=== PATIENT | male | born 1960 | race Asian ===

== ENCOUNTER 2020-11-29 23:17 | Inpatient (IN) | payer OTHER, SELFPAY ==
[~2020-11-29] VITALS: Ht 175.3 cm; Wt 79.4 kg
[2020-11-29 23:37] VITALS: BP_SYST 162
[2020-11-30] MEDS ORDERED: ONDANSETRON 4 MG ODT TAB PO ONE (00:15)
[2020-11-30] MEDS ORDERED: KETOROLAC TROMETHAMINE 60 MG/2 ML VIAL IM ONE (00:15)
[2020-11-30 00:50] LABS: BILIRUBIN,URINE NEGATIVE (NEGATIVE); BLOOD, URINE NEGATIVE (NEGATIVE); CLARITY/URINE CLEAR (CLEAR); COLOR,URINE YELLOW (YELLOW); GLUCOSE,URINE 2+ (NEGATIVE); KETONES,URINE 2+ (NEGATIVE); LEUKOCYTE ESTERASE ,URINE NEGATIVE (NEGATIVE); NITRITE, URINE NEGATIVE (NEGATIVE); PH,URINE 7.5 (5.0-8.0); PROTEIN URINE NEGATIVE (NEGATIVE); UROBILINOGEN,URINE 0.2 (0.2-1.0)
[2020-11-30 00:54] LABS: BASOPHILS # (AUTO) 0.1 K/uL (0.0-0.2); BASOPHILS % (AUTO) 0.8 % (0.0-2.0); HEMATOCRIT 45.1 % (36-54); HEMOGLOBIN 15.1 g/dL (14.0-18.0); LYMPHOCYTES # (AUTO) 0.8 K/uL (1.0-5.5); LYMPHOCYTES % (AUTO) 8.4 % (20.5-51.5); MEAN CORPUSCULAR HEMOGLOBIN 27 pg (27-31); MEAN CORPUSCULAR HGB CONC 34 % (32-36); MEAN CORPUSCULAR VOLUME 81 fL (79.0-98.0); MONOCYTES # (AUTO) 0.3 K/uL (0.0-1.0); MONOCYTES % (AUTO) 2.6 % (1.7-9.3); NEUTROPHILS # (AUTO) 8.6 K/uL (1.8-7.7); NEUTROPHILS % (AUTO) 88.2 % (40.0-70.0); PLATELET COUNT (AUTO) 202 K/uL (130-430); RED BLOOD CELL COUNT(AUTO) 5.55 MIL/uL (4.2-6.2); RED CELL DISTRIBUTION WIDTH 14.5 % (9.0-15.0); WHITE BLOOD COUNT (AUTO) 9.7 K/uL (4.8-10.8)
[2020-11-30 01:00] LABS: BACTERIA,URINE FEW /HPF (None Seen); RBC,URINE 0-3 /HPF (0-3); WBC,URINE 0-3 /HPF (0-3)
[2020-11-30 01:15] LABS: ALANINE AMINOTRANSFERASE 25 U/L (12-78); ALBUMIN 4.5 g/dL (3.4-4.8); ANION GAP 12 (5-15); ASPARTATE AMINOTRANSFERASE 13 U/L (10-37); CALCIUM 9.7 mg/dL (8.4-11.0); CHLORIDE 102 mmol/L (98-107); CREATININE 1.12 mg/dL (0.55-1.30); GLUCOSE 180 mg/dL (70-99); LIPASE 83 U/L (73-393); POTASSIUM 3.7 mmol/L (3.5-5.1); SODIUM SERUM 141 mmol/L (136-145); UREA NITROGEN, BLOOD 18 mg/dL (8-21)
[2020-11-30 01:16] LABS: GFR AFRICAN AMERICAN 87 mL/min (>90)
--- NOTE | 2020-11-30 01:38 | NUR ---
Patient to ER bed 3 to gown for evaluation. Side rails up.
--- NOTE | 2020-11-30 01:40 | NUR ---
Patient BIB by family from home. C/O RLQ abdominal pain x today. Patient reported, had RLQ abdominal pain ~ 4 hours ETA. A/O,X4, RLQ abdominal pain, pain rate 5/10.
--- NOTE | 2020-11-30 01:41 | NUR ---
ER Dr. Martinez at bedside examining patient.
[2020-11-30] MEDS ORDERED: NACL 0.9% 1,000 ML IV ONE (02:00)
[2020-11-30] MEDS ORDERED: MORPHINE 4 MG INJ. 4 MG/ML VIAL IVP ONE (02:00)
[2020-11-30] MEDS ORDERED: PIPERACILLIN/TAZO 3.375 GM in NS 50 ML IV ONE (02:00)
[2020-11-30] MEDS ORDERED: hydrALAZINE HCL 20 MG/ML VIAL IVP PRN (02:00)
--- NOTE | 2020-11-30 02:19 | NUR ---
BS 148, Dr. Martinez notified.
[2020-11-30] MEDS ORDERED: AMLO2.5T2 PO (02:21)
[2020-11-30] MEDS ORDERED: AMLO-349 PO (02:21)
[2020-11-30] MEDS ORDERED: METF-518 PO (02:21)
--- NOTE | 2020-11-30 02:21 | NUR ---
Medication reconciliation completed with information provided by patient. Any prior medication reconciliation on file was reviewed and corrected.
[2020-11-30] MEDS ORDERED: PIPERACILLIN/TAZOBACTAM 3.375 GM/VIAL (ZOSYN) IV ONE (02:39)
--- NOTE | 2020-11-30 04:24 | NUR ---
Patient had abdominal pain, pain rate 7/10.
[2020-11-30] MEDS ORDERED: MORPHINE 4 MG INJ. 4 MG/ML VIAL ONE (04:29)
--- NOTE | 2020-11-30 04:30 | NUR ---
COVID-19 swabs collected and sent to lab.
[2020-11-30 05:22] LABS: BASOPHILS % (AUTO) 0.4 % (0.0-2.0); HEMATOCRIT 42.7 % (36-54); HEMOGLOBIN 14.3 g/dL (14.0-18.0); LYMPHOCYTES # (AUTO) 0.8 K/uL (1.0-5.5); LYMPHOCYTES % (AUTO) 7.7 % (20.5-51.5); MEAN CORPUSCULAR HEMOGLOBIN 27 pg (27-31); MEAN CORPUSCULAR HGB CONC 34 % (32-36); MEAN CORPUSCULAR VOLUME 81 fL (79.0-98.0); MONOCYTES # (AUTO) 0.6 K/uL (0.0-1.0); MONOCYTES % (AUTO) 5.2 % (1.7-9.3); NEUTROPHILS # (AUTO) 9.3 K/uL (1.8-7.7); NEUTROPHILS % (AUTO) 86.7 % (40.0-70.0); PLATELET COUNT (AUTO) 189 K/uL (130-430); RED CELL DISTRIBUTION WIDTH 14.4 % (9.0-15.0); WHITE BLOOD COUNT (AUTO) 10.7 K/uL (4.8-10.8)
--- NOTE | 2020-11-30 05:56 | NUR ---
Patient resting quietly, No acute distress noted. Vital signs within normal range.
[2020-11-30] MEDS ORDERED: NALOXONE HCL 0.4 MG/ML AMP (NARCAN) IVP PRN ×3 (07:00→17:30)
[2020-11-30] MEDS ORDERED: HYDROcodone/ACETAMIN 5-325 MG TAB (NORCO/ VICODIN) PO PRN ×2 (07:00→17:30)
[2020-11-30] MEDS ORDERED: ACETAMINOPHEN 325 MG TABLET PO PRN ×2 (07:00→17:30)
[2020-11-30] MEDS ORDERED: ONDANSETRON HCL 4 MG/2 ML VIAL IVP PRN (07:00)
[2020-11-30] MEDS ORDERED: DOCUSATE SODIUM 100 MG CAPSULE PO PRN (07:00)
--- NOTE | 2020-11-30 07:19 | NUR ---
Report given to VIRA Reyes and endorse care of patient.
--- NOTE | 2020-11-30 07:21 | NUR ---
report recieved from August RN
[2020-11-30] MEDS: NACL 0.9% 1,000 ML IV SCH ×2 (07:34→15:26)
--- NOTE | 2020-11-30 08:05 | NUR ---
Admission Note Received patient from ER with diagnosis of APPENDICITIS. Initial Plan of Care discussed-patient verbalized understanding. . Oriented to room, call light, pain management and safety.
--- NOTE | 2020-11-30 08:07 | NUR ---
CONSULTATION PAGED REASON FOR CONSULTATIONY:APPENDICITS WAS CONSULT CALED? PERSON WHO WAS NOTIFIED:ABBY CONSULTING PHYSICIAN:TRUDY ADAMS RESEARCH AND DEVELOPMENT MANAGER SPECIALTY:SURGEON RESEARCH AND DEVELOPMENT MANAGER PHONE NUMBER:[phone] REQUESTING PHYSICIAN:AYSE HEAD
--- NOTE | 2020-11-30 08:30 | NUR ---
ADMISSION NOTE Received patient from ER via gurney. Patient admitted with diagnosis of appendicitis. Patient is awake, alert, oriented 4X. Patient oriented to hospital room, call light, toileting, pain management and safety-teach back done. Patient informed that Darshana will be his nurse and that their room number is [id number]. Personal belongings checked and Belongings List documented. Call light within reach.
[2020-11-30 08:53] VITALS: BP_SYST 134
[2020-11-30 08:58] LABS: FREE T4 (FREE THYROXINE) 1.1 ng/dl (0.8-1.5); PHOSPHORUS 4.2 mg/dL (2.7-4.5); THYROID STIMULATING HORMONE 1.36 uIu/mL (0.36-3.74)
[2020-11-30] MEDS ORDERED: NOR10 PO (12:09)
[2020-11-30] MEDS ORDERED: ATORVASTATIN 10 MG TABLET PO ONE (12:30)
[2020-11-30] MEDS ORDERED: amLODIPine BESYLATE 10 MG TABLET PO ONE (12:30)
[2020-11-30 12:44] VITALS: BP_SYST 133
[2020-11-30] MEDS ORDERED: metroNIDAZOLE 500 mg/NS 100 ML IV SCH (14:00)
[2020-11-30] MEDS ORDERED: D5W 1,000 ML IV PRN (14:15)
[2020-11-30] MEDS ORDERED: GLUCOSE (DEXTROSE) ORAL GEL -Adults PO PRN (14:15)
[2020-11-30] MEDS ORDERED: INSULIN REGULAR, HUMAN 100 UNITS/ML, 10 ML VIAL (humuLIN R) SUBCUT PRN (14:15)
[2020-11-30] MEDS ORDERED: DEXTROSE 50% JECT 50 ML DISP.SYRIN IVP PRN (14:15)
[2020-11-30] MEDS ORDERED: D5/0.45 NS 1,000 ML IV SCH ×2 (14:15→17:30)
[2020-11-30] MEDS ORDERED: cefTRIAXone 1 GM IVPB PREMIX 50 ML IV SCH ×2 (15:00→18:00)
--- NOTE | 2020-11-30 16:11 | NUR ---
Taken to surgery
[2020-11-30] MEDS ORDERED: PROPOFOL 200MG/ 20ML VIAL (DIPRIVAN) IV ONE (16:15)
[2020-11-30] MEDS ORDERED: BUPIVACAINE /EPINEPHRINE/PF 0.25% 30 ML VIAL INJ ONE (16:15)
[2020-11-30] MEDS ORDERED: NS IRRIG SOLN 1000 ML IR ONE (16:15)
[2020-11-30] MEDS ORDERED: LR 1,000 ML IV.SOLN IV ONE (16:15)
[2020-11-30] MEDS ORDERED: NEOSTIGMINE METHYLSULFATE 1 MG/ML, 10 ML VIAL IVP ONE (16:15)
[2020-11-30] MEDS ORDERED: MIDAZOLAM HCL 5 MG/5 ML VIAL IVP ONE (16:15)
[2020-11-30] MEDS ORDERED: METOPROLOL TARTRATE 5 MG/5 ML VIAL IVP ONE (16:15)
[2020-11-30] MEDS ORDERED: SEVOFLURANE 15 MIN GAS INH ONE (16:15)
[2020-11-30] MEDS ORDERED: GLYCOPYRROLATE 0.2 MG/ML VIAL IJ ONE (16:15)
[2020-11-30] MEDS ORDERED: fentaNYL CITRATE/PF 100 MCG/2 ML AMP IVP ONE (16:15)
[2020-11-30] MEDS ORDERED: LEVOFLOXACIN IN DEXTROSE 5 % 500 MG/100 ML PIGGYBACK IV ONE (16:15)
[2020-11-30] MEDS ORDERED: ROCURONIUM BROMIDE 10 MG/ML (ZEMURON) IV ONE (16:15)
[2020-11-30] MEDS ORDERED: HYDROmorphone 1 MG/ML INJ. CARTRIDGE IVP PRN (17:30)
--- NOTE | 2020-11-30 18:25 | NUR ---
Returned from surgery post op vitals taken, vitals stable, reports 2/10 pain in abd, ice chips given, no nausea, IV infusing well, iv patent dry and intact, ABD incision x 3 covered with gauze dressing and tape, scant blood noted on lower abd incision. Plan of care discussed with patient, verbalized understanding. Will endorse post op vitals signs to shift production supervisor nurse.
[2020-11-30 18:33] VITALS: BP_SYST 120
--- NOTE | 2020-11-30 19:35 | NUR ---
INITIAL NOTE AT INITIAL ASSESSMENT, PATIENT IS RESTING IN BED, STABLE, NO SIGNS OF RESPIRATORY DISTRESS. PATIENT VERBALIZES NO PAIN. PLAN OF CARE FOR THE EVENING IS COMMUNICATED WITH THE PATIENT. PATIENT DEMONSTRATES CORRECT USAGE OF CALL LIGHT AT THIS TIME. BED IS LOCKED, ALARMED, AND AT THE LOWEST LEVEL. FALL SAFETY EDUCATION PROVIDED. FALL, SAFETY, AND RESPIRATORY PRECAUTIONS WILL BE TAKEN THROUGHOUT THE SHIFT.
[2020-11-30 19:45] VITALS: BP_SYST 146
[2020-11-30] MEDS: metroNIDAZOLE 500 mg/NS 100 ML IV SCH (22:00)
[2020-11-30] MEDS: ONDANSETRON HCL 4 MG/2 ML VIAL IVP PRN (22:00)
[2020-11-30] MEDS: MORPHINE 2 MG/ML INJ. SYRINGE IVP PRN (22:06)
--- NOTE | 2020-11-30 22:36 | NUR ---
HIGH ALERT NOTE: Called Dr. SEVILLA back at [phone] identified within the medical roster to verify physician authenticity.
[2020-11-30] MEDS ORDERED: ALBUTEROL SULFATE 0.083% 2.5 MG/3 ML VIAL.NEB INH PRN (22:45)
--- NOTE | 2020-11-30 22:45 | NUR ---
INCENTIVE SPIROMETER TEACHING PATIENT SUCCESSFULLY DEMONSTRATES CORRECT USAGE OF INCENTIVE SPIROMETER AT THIS TIME. PATIENT IS AVERAGING 1250 ML; PATIENT VERBALIZES EXPERIENCING SOME ABDOMINAL PAIN WHEN USING THE INCENTIVE SPIROMETER. PATIENT VERBALIZES KNOWING TO PRACTICE 10 TIMES AN HOUR WHILE AWAKE. AT THIS TIME, PATIENT IS ON ROOM AIR, WITH OXYGEN SATURATION AT 95%. WILL CONTINUE TO ENCOURAGE USE OF INCENTIVE SPIROMETER EVERY HOUR PATIENT IS AWAKE.
[2020-12-01] VITALS: BP_SYST 130
[2020-12-01 00:13] VITALS: BP_SYST 120
[2020-12-01] MEDS: NACL 0.9% 1,000 ML IV SCH ×2 (03:00→13:00)
[2020-12-01] MEDS: metroNIDAZOLE 500 mg/NS 100 ML IV SCH (06:19)
[2020-12-01] MEDS: MORPHINE 2 MG/ML INJ. SYRINGE IVP PRN (06:31)
--- NOTE | 2020-12-01 06:50 | NUR ---
CLOSING NOTE PATIENT DID NOT YET PASS GAS DURING THE NIGHT, ALSO, NO BOWEL MOVEMENT. HE STATES THAT PRN MEDICATION GIVEN FOR PAIN WAS EFFECTIVE FOR HIS PAIN. PATIENT SLEPT WELL THROUGHOUT THE SHIFT, NO SHORTNESS OF BREATH NOTED. AT THIS TIME, PATIENT IS RESTING IN BED, STABLE, NO SIGNS OF RESPIRATORY DISTRESS. CALL LIGHT IS WITHIN REACH. BED IS LOCKED, ALARMED, AND AT THE LOWEST LEVEL. FALL, SAFETY, AND RESPIRATORY PRECAUTIONS HAVE BEEN TAKEN THROUGHOUT THE SHIFT. WILL CONTINUE TO MONITOR UNTIL SHIFT REPORT IS GIVEN AT BEDSIDE TO AM NURSE.
[2020-12-01 06:52] LABS: BASOPHILS % (AUTO) 0.4 % (0.0-2.0); EOSINOPHILS % (AUTO) 0.1 % (0.0-4.0); HEMATOCRIT 38.4 % (36-54); HEMOGLOBIN 12.9 g/dL (14.0-18.0); LYMPHOCYTES % (AUTO) 12.4 % (20.5-51.5); MEAN CORPUSCULAR HEMOGLOBIN 27 pg (27-31); MEAN CORPUSCULAR HGB CONC 34 % (32-36); MEAN CORPUSCULAR VOLUME 80 fL (79.0-98.0); MONOCYTES # (AUTO) 0.7 K/uL (0.0-1.0); MONOCYTES % (AUTO) 8.4 % (1.7-9.3); NEUTROPHILS # (AUTO) 6.5 K/uL (1.8-7.7); NEUTROPHILS % (AUTO) 78.7 % (40.0-70.0); PLATELET COUNT (AUTO) 163 K/uL (130-430); RED BLOOD CELL COUNT(AUTO) 4.81 MIL/uL (4.2-6.2); RED CELL DISTRIBUTION WIDTH 14.4 % (9.0-15.0); WHITE BLOOD COUNT (AUTO) 8.2 K/uL (4.8-10.8)
[2020-12-01 07:40] LABS: ALBUMIN 2.8 g/dL (3.4-4.8); CALCIUM 8.1 mg/dL (8.4-11.0); CREATININE 0.99 mg/dL (0.55-1.30); POTASSIUM 3.3 mmol/L (3.5-5.1); TOTAL BILIRUBIN 1.1 mg/dL (0.0-1.0)
[2020-12-01] MEDS ORDERED: ATORVASTATIN 10 MG TABLET PO SCH (09:00)
[2020-12-01] MEDS ORDERED: [UNRECOGNIZED DRUG - OTHER] PO SCH (09:00)
[2020-12-01] MEDS ORDERED: amLODIPine BESYLATE 10 MG TABLET PO SCH (09:00)
[2020-12-01] MEDS ORDERED: ATORVASTATIN PO SCH (09:00)
[2020-12-01] MEDS ORDERED: AMLODIPINE PO SCH (09:00)
[2020-12-01] MEDS ORDERED: POTASSIUM CHLORIDE 10 MEQ TAB.PRT.SR PO ONE (10:30)
[2020-12-01] MEDS ORDERED: KETOROLAC TROMETHAMINE 30 MG VIAL IVP PRN (10:30)
[2020-12-01] MEDS: ONDANSETRON HCL 4 MG/2 ML VIAL IVP PRN (11:10)
[2020-12-01 13:15] LABS: BARBITURATE, URINE NEGATIVE (NEG <=200); BENZODIAZEPINE, URINE NEGATIVE (NEG <=150); CANNABINOID, URINE NEGATIVE (NEG <=50); COCAINE, URINE NEGATIVE (NEG <=150); METHAMPHETAMINES SCREEN,URINE NEGATIVE (NEG <=500); OPIATE, URINE NEGATIVE (NEG <=100); PHENCYCLIDINE SCREEN,URINE NEGATIVE (NEG <=25); UR TRICYCLIC ANTIDEPRESSANTS NEGATIVE (NEG <=300); URINE AMPHETAMINE NEGATIVE (NEG <=500); URINE METHADONE NEGATIVE (NEG <=200); URINE OXYCODONE SCREEN NEGATIVE (NEG <=100); URINE PROPOXYPHENE SCREEN NEGATIVE (NEG <=300)
[2020-12-01 16:34] VITALS: BP_SYST 120
[2020-12-01] MEDS ORDERED: HYDR-3917 PO (16:39)
[2020-12-01] MEDS ORDERED: DOCU-144 PO (16:44)
[2020-12-01] MEDS ORDERED: SIMETHICONE 80 MG TAB.CHEW PO ONE (16:45)
--- NOTE | 2020-12-01 18:00 | NUR ---
D/C Patient Patient given medication reconciliation form and D/C instructions. Exit Care provided. Patient verbalized understanding. MD discussed with patient the results and treatment provided. Ambulatory with steady gait for discharge to home. Patient in stable condition, ID band removed. IV catheter removed, intact and dressing applied, no active bleeding. Rx of [place] given. Patient educated on pain management. All belongings sent with patient.
== END 2020-12-01 17:35 | disposition home or self-care (01) | DRG 343 ==
LOC: SED 23:17 → SMU 11-30 01:55
PROVIDERS: ADMIT Family Medicine; ATTEND Family Medicine
PROC: 0DTJ4ZZ Resection of Appendix, Percutaneous Endoscopic Approach (ICD-10-PCS; principal; 2020-11-30 16:15)
DX: K35.80 Unspecified acute appendicitis (principal); K40.90 Unilateral inguinal hernia, without obstruction or gangrene, not specified as recurrent; E11.9 Type 2 diabetes mellitus without complications; I10 Essential (primary) hypertension; E78.5 Hyperlipidemia, unspecified; Z20.822 Contact with and (suspected) exposure to COVID-19
CPT/HCPCS: 36415; 71045; 76376; 80053; 80061; 80307; 81000; 82150; 82962; 83036; 83690; 83735; 83880; 84100; 84439; 84443; 84484; 85025; 87040-TC; 87081; 88304; 93005; 94640; 96365; 96372; 96375; 99285; J0696; J1170; J1815; J1885; J1956; J2250; J2270; J2405; J2543; J2704; J2710; J3010; J3490; J7120; J7613; Q0162

== ENCOUNTER 2023-09-15 21:37 | Emergency (ER) | payer OTHER, BC ==
[~2023-09-15] VITALS: Ht 175.3 cm; Wt 78.9 kg
[~2023-09-15 21:37] MED LIST: AMLO-349 PO; DOCU-144 PO; HYDR-3917 PO; METF-518 PO
[2023-09-15 21:51] VITALS: BP_SYST 135; PULSE 71; RESP 18; TEMP 98.3; O2SAT 98
[2023-09-15 23:13] VITALS: BP_SYST 135; PULSE 71; RESP 18; TEMP 98.3; O2SAT 98
== END 2023-09-15 23:14 | disposition home or self-care (01) ==
LOC: SED 21:37
DX: S00.03XA Contusion of scalp, initial encounter (principal); Z79.899 Other long term (current) drug therapy; Z79.2 Long term (current) use of antibiotics; V89.2XXA Person injured in unspecified motor-vehicle accident, traffic, initial encounter; Y93.89 Activity, other specified; Y92.89 Other specified places as the place of occurrence of the external cause; Y99.8 Other external cause status
CPT/HCPCS: 70450-TC; 99284